=== PATIENT | female | born 1960 | race Caucasian/White ===

== ENCOUNTER 2025-09-13 19:23 | Emergency (ER) | payer MEDICARE ==
[~2025-09-13] VITALS: Ht 170.2 cm; Wt 81.6 kg
--- NOTE | 2025-09-13 19:37 | ERN ---
General Chief Complaint: Chest Pain Stated Complaint: CHEST DISCOMFORT Time Seen by MD: 19:29 History of Present Illness Initial Comments 65-year-old female history of breast cancer here for evaluation of chest tightness/pressure. Patient states that the symptoms started earlier today and has not gone away. She has not taken any medication for pain. She has no history of coronary artery disease. She recently moved here from [place] and has a establish care with a primary about three weeks ago. States that she had a EKG done which showed a arrhythmia. sHe does not know the diagnosis. Additionally she states that she has been having bilateral lower extremity swelling which has been ongoing for the past five months. Allergies: Coded Allergies: No Known Allergies (Unverified Allergy, Unknown, 09/13/25) Past Medical History Past Medical History: Other Medical History Other: BREAST CANCER, RESTLESS LEG Past Surgical History: Other Surgical History Other: BILATERAL MASTECTOMY, LUMPECTOMY Cardiovascular: (+) chest pain, (+) edema Musculoskeletal: (+) joint swelling Review of Systems: was completed, & the rest were negative. Physical Exam Physical Exam Dictation GENERAL APPEARANCE NAD, activity normal for age, well developed/ well nourished, no cyanosis, pallor, or diaphoresis. EYES lids/conjunctiva normal. EARS/NOSE/THROAT Mucous membranes moist, nares normal, lips/teeth normal uvula midline without oral pharyngeal erythema, exudate or swelling TMs normal bilaterally. No lymphangitis/lymphedema. HEAD/NECK normocephalic atraumatic, no facial trauma, neck is supple. RESPIRATORY respiratory effort normal, speaks in full sentences, no tripod position, no accessory muscle use. Lungs clear to auscultation without rhonchi, wheezes, rales CARDIAC Regular rate and rhythm, no edema. ABDOMINAL Soft, ND/NT. No evidence of fluid wave. No pulsatile masses on exam, rebound tenderness, Hidalgo sign or pain over Mcburney's point. MUSCLES/EXTREMITIES bilateral lower extremity swelling 2+. SKIN Warm, pink and dry. No rashes, dermatoses, petechiae or lesions. NEUROLOGICAL Speech is clear and appropriate. Normal level of consciousness. Gait and coordination are normal. 5/5 strength in all extremities. PSYCH Normal mood and affect. Judgement/competence is appropriate Results Laboratory and Microbiology Lab and Micro Result Laboratory Tests Test 09/13/25 19:37 White Blood Count 4.5 K/uL (4.8-10.8) L Red Blood Count 4.05 MIL/uL (4.00-5.50) Hemoglobin 12.8 g/dL (12.0-16.0) Hematocrit 38.8 % (36-48) Mean Corpuscular Volume 95.8 fL (79-99) Mean Corpuscular Hemoglobin 31.6 pg (27.0-33.0) Mean Corpuscular Hemoglobin Concent 33.0 g/dL (32.0-36.0) Red Cell Distribution Width 12.9 % (11.0-15.5) Platelet Count 226 K/uL (130-400) Mean Platelet Volume 10.6 fL (7.5-10.5) H Immature Granulocyte % (Auto) 0.2 % (0-1) Neutrophils (%) (Auto) 50.9 % (40.0-77.0) Lymphocytes (%) (Auto) 31.5 % (21.0-51.0) Monocytes (%) (Auto) 15.1 % (3.0-13.0) H Eosinophils (%) (Auto) 1.6 % (0.0-8.0) Basophils (%) (Auto) 0.7 % (0.0-5.0) Neutrophils # (Auto) 2.3 K/uL (1.8-7.7) Lymphocytes # (Auto) 1.4 K/uL (1.0-4.8) Monocytes # (Auto) 0.7 K/uL (0.1-1.0) Eosinophils # (Auto) 0.07 K/uL (0.00-0.70) Basophils # (Auto) 0.03 K/uL (0.00-0.20) Absolute Immature Granulocyte (auto 0.01 K/uL (0-1) Nucleated Red Blood Cells 0.0 % (0.0-0.19) White Cell Morphology Comment See comments Sodium Level 140 mmol/L (136-145) Potassium Level 3.8 mmol/L (3.5-5.1) Chloride Level 104 mmol/L (101-111) Carbon Dioxide Level 27 mmol/L (21-32) Blood Urea Nitrogen 18 mg/dL (7-18) Creatinine 0.8 mg/dL (0.5-1.0) Glomerular Filtration Rate Calc 82 mL/min (>90) Random Glucose 100 mg/dL (70-105) Total Calcium 8.5 mg/dL (8.5-10.1) Total Bilirubin 0.1 mg/dL (0.2-1.0) L Direct Bilirubin 0.1 mg/dL (0.0-0.3) Aspartate Amino Transf (AST/SGOT) 16 U/L (10-37) Alanine Aminotransferase (ALT/SGPT) 20 U/L (12-78) Alkaline Phosphatase 125 U/L (50-136) Troponin I High Sensitivity 5 ng/L (4-50) B-Type Natriuretic Peptide 85 pg/mL (0-100) Total Protein 6.7 g/dL (6.0-8.3) Albumin 3.2 g/dL (3.5-5.0) L MDM 65-year-old female relatively healthy here for evaluation of chest pain/chest pressure. We will get a cardiac workup and reassess. Disposition pending results of labs imaging and clinical improvement. ED Course Orders Procedure Category Date Status Time Basic Metabolic Panel LAB 09/13/25 Complete 19:29 Cbc With Differential LAB 09/13/25 Complete 19:29 Chest 1vw RAD 09/13/25 Taken 19:29 Troponin I High LAB 09/13/25 Complete Sensitivity 19:29 Urinalysis Profile LAB 09/13/25 In Process 19:30 B-Type Natriuretic LAB 09/13/25 Complete Peptide 19:50 Hepatic Function Panel LAB 09/13/25 Complete 19:37 Vital Signs Date Time Temp Pulse Resp B/P (MAP) Pulse Ox O2 Delivery O2 Flow Rate FiO2 09/13/25 20:00 98.1 77 18 114/48 99 Room Air* 0 21 09/13/25 19:27 98.4 77 18 130/56 98 Room Air 0 Patient has a heart score of one. Labs reviewed with the patient. Imaging reviewed with the patient. Vital signs stable. Patient has a symptomatic at this time. We will discharge home. HEART Score Response (Comments) Value History: Low suspicion (0) 0 EKG: Normal 0 Age: 45-65yrs (+1) 1 Risk Factors: No known risk factors (0) 0 Initial Troponin: Normal limit (0) 0 HEART Score Risk: Low Risk for MACE (1-3) Total 1 DX & DISP Disposition: Discharge Departure Impression: Primary Impression: Atypical chest pain Additional Impression: Anxiety about health Condition: Stable NO SCHNEIDER MD Sep 13, 2025 19:37
[2025-09-13 19:56] LABS: IMMATURE GRANULOCYTE ABSOLUTE 0.01 K/uL (0-1); NUCLEATED RED BLOOD CELLS 0.0 % (0.0-0.19); PLATELET COUNT (AUTO) 226 K/uL (130-400); RED BLOOD CELL COUNT(AUTO) 4.05 MIL/uL (4.00-5.50); RED CELL DISTRIBUTION WIDTH 12.9 % (11.0-15.5); WHITE BLOOD COUNT (AUTO) 4.5 K/uL (4.8-10.8)
[2025-09-13 20:00] VITALS: TEMP 98.1
[2025-09-13 20:11] LABS: CREATININE 0.8 mg/dL (0.5-1.0); GLOMERULAR FILTR. RATE CALC 82.0 mL/min (>90); GLUCOSE,RANDOM 100.0 mg/dL (70-105); SODIUM SERUM 140.0 mmol/L (136-145); UREA NITROGEN, BLOOD 18.0 mg/dL (7-18)
[2025-09-13 20:15] LABS: ASPARTATE AMINOTRANSFERASE 16.0 U/L (10-37); TOTAL PROTEIN, SERUM 6.7 g/dL (6.0-8.3)
[2025-09-13 20:45] LABS: APPEARANCE,URINE CLEAR (CLEAR); GLUCOSE, URINE (UA) NEGATIVE (NEGATIVE); LEUKOCYTE ESTERASE ,URINE 500 Leu/uL (NEGATIVE); NITRATE,URINE NEGATIVE (NEGATIVE); OCCULT BLOOD,URINE NEGATIVE (NEGATIVE)
--- NOTE | 2025-09-13 20:52 | HMCIMG ---
EXAM: CR Chest, single view. CLINICAL HISTORY: Chest pain. COMPARISON: None FINDINGS: The lungs show no infiltrate or other acute findings. No pleural effusion or pneumothorax. The cardiomediastinal silhouette is within normal limits. No acute osseous abnormality. Degenerative changes in the bilateral lacrimal vallecula joint. IMPRESSION: No acute cardiopulmonary pathology is evident. /Wing
[2025-09-13 20:54] LABS: ADD UA MICROSCOPIC YES
[2025-09-13 21:05] LABS: SQUAMOUS EPITHELIAL CELL,UR RARE /HPF (0-2)
[2025-09-13 21:20] VITALS: BP 123/64; PULSE 73; RESP 18; O2SAT 99
--- NOTE | 2025-09-16 11:17 | EKG ---
[facility] Test Date: 2025-09-13 Test Time: 18:41:04 Pat Name: SHERI SIMON Department: ED Room: Gender: F [employer] Machine: 08 : 1960 Requested By: NO SCHNEIDER Order Number: [id number] Reading MD: Keisha Lozada Measurements Intervals [place] Rate: 79 P: 59 TN: 181 QRS: 42 QRSD: 86 T: 45 QT: 386 QTc: 444 Interpretive Statements Sinus rhythm No previous ECG available for comparison Electronically Signed On 09-16-2025 12:45:41 AUT[employer] STRIPER by Keisha Lozada Please click the below link to view image of tracing.
== END 2025-09-13 21:55 | disposition home or self-care (01) ==
LOC: EDH 19:23
DX: F41.9 Anxiety disorder, unspecified (principal); R07.89 Other chest pain; G25.81 Restless legs syndrome; Z79.899 Other long term (current) drug therapy; Z85.3 Personal history of malignant neoplasm of breast; Z90.13 Acquired absence of bilateral breasts and nipples; Z98.890 Other specified postprocedural states
CPT/HCPCS: 36415; 71045; 80048; 80076; 81001; 83880; 84484; 85025; 87086; 93005; 99285